=== PATIENT | female | born 1945 | race Two or more races ===

== ENCOUNTER 2023-08-27 17:24 | Inpatient (IN) | payer MEDICARE, OTHER ==
[~2023-08-27] VITALS: Ht 160 cm; Wt 49.0 kg
[2023-08-27] MEDS ORDERED: AMLODIPINE (17:50)
[2023-08-27] MEDS ORDERED: KEPPRA (17:50)
[2023-08-27 18:03] LABS: BASOPHILS # (AUTO) 0.1 K/UL (0.0-0.2); BASOPHILS % (AUTO) 1.5 % (0.0-2.0); EOSINOPHILS % (AUTO) 0.9 % (0.0-7.0); HEMATOCRIT 34.3 % (31.2-41.9); HEMOGLOBIN 11.6 g/dL (10.9-14.3); LYMPHOCYTES # (AUTO) 1.4 K/uL (0.8-4.8); LYMPHOCYTES % (AUTO) 26.9 % (20.5-51.5); MEAN CORPUSCULAR HEMOGLOBIN 31.1 uug (24.7-32.8); MEAN CORPUSCULAR HGB CONC 34 g/dL (32.3-35.6); MEAN CORPUSCULAR VOLUME 91.8 fL (75.5-95.3); MONOCYTES # (AUTO) 0.5 K/uL (0.1-1.30); NEUTROPHILS # (AUTO) 3.1 K/uL (1.8-8.9); NEUTROPHILS % (AUTO) 61.7 % (38.5-71.5); PLATELET COUNT (AUTO) 175 K/uL (179-408); RED BLOOD CELL COUNT(AUTO) 3.74 MIL/uL (3.63-4.92); WHITE BLOOD COUNT (AUTO) 5.1 K/uL (3.8-11.8)
[2023-08-27 18:09] LABS: DIFFERENTIAL COMMENT 1
[2023-08-27 18:10] LABS: CALCIUM 8.8 mg/dL (8.5-10.1); CARBON DIOXIDE 29 mmol/L (21-32); CHLORIDE 101 mmol/L (98-107); CREATININE 0.8 mg/dL (0.6-1.3); GLUCOSE 102 mg/dL (74-106); POTASSIUM 3.9 mmol/L (3.5-5.1); SODIUM SERUM 133 mmol/L (136-145); UREA NITROGEN, BLOOD 27 mg/dL (7-18)
[2023-08-27 18:11] LABS: *BILIRUBIN,URIN NEGATIVE (NEGATIVE); *BLOOD, URINE NEGATIVE (NEGATIVE); *CLARITY,URINE CLEAR (CLEAR); *COLOR,URINE YELLOW (YELLOW); *KETONES,URINE NEGATIVE (NEGATIVE); *PROTEIN,URINE 1+ (NEGATIVE); *UROBILINOGEN,URINE 0.2 E.U./dl (NORMAL); LEUKOCYTE ESTERASE ,URINE TRACE (NEGATIVE); NITRITE, URINE NEGATIVE (NEGATIVE); UGLUCOSE NEGATIVE (NEGATIVE)
[2023-08-27 18:11] LABS: AMMONIA < 10 umol/L (11-32)
[2023-08-27 18:13] LABS: ETHANOL < 3 MG/DL (0-10)
[2023-08-27 18:17] LABS: *AMPHETAMINE, URINE NEGATIVE (NEGATIVE); *BARBITURATE, URINE NEGATIVE (NEGATIVE); *BENZODIAZEPINE, URINE NEGATIVE (NEGATIVE); *CANNABINOID, URINE NEGATIVE (NEGATIVE); *COCCAINE, URINE NEGATIVE (NEGATIVE); *OPIATE, URINE NEGATIVE (NEGATIVE); *PHENCYCLIDINE SCREEN,URINE NEGATIVE (NEGATIVE); FENTANYL, URINE NEGATIVE (NEGATIVE)
[2023-08-27 18:19] LABS: RBC,URINE 0-3 /HPF (0-3)
[2023-08-27 18:20] LABS: BACTERIA,URINE FEW /HPF (NONE SEEN)
[2023-08-27 18:21] LABS: SQUAMOUS EPITHELIAL CELL,UR MODERATE /HPF (NONE SEEN)
[2023-08-27 18:25] LABS: ACETAMINOPHEN < 10.0 ug/mL (10-30); ALANINE AMINOTRANSFERASE 20 U/L (14-59); ALBUMIN 3.5 g/dL (3.4-5.0); ALKALINE PHOSPHATASE 82 U/L (50-136); ASPARTATE AMINOTRANSFERASE 20 U/L (15-37); BILIRUBIN,DIRECT 0.1 mg/dL (0.0-0.2); BILIRUBIN,TOTAL 0.4 mg/dL (0.2-1.0); TOTAL PROTEIN, SERUM 7.1 g/dL (6.4-8.2)
[2023-08-27] MEDS ORDERED: levETIRAcetam IV 1,000 MG in IV DEXTROSE 5% 100 ML IV ONE (19:15)
[2023-08-27] MEDS ORDERED: MORPHINE SULFATE 2 MG/1 ML DISP.SYRIN IV ONE ×2 (19:15→20:30)
[2023-08-27] MEDS ORDERED: SWABABLE VALVE TRANSFER SET EA MC ONE ×2 (19:16→20:44)
[2023-08-27] MEDS ORDERED: IV NORMAL SALINE 250 ML IV ONE ×2 (19:16→20:44)
[2023-08-27] MEDS ORDERED: IOHEXOL 350 100 ML INFUS..BTL ONE ×2 (19:16→20:44)
[2023-08-27] MEDS ORDERED: levETIRAcetam 500 MG/5 ML VIAL IV ONE (19:17)
[2023-08-27] MEDS ORDERED: ONDANSETRON 4 MG/2 ML VIAL IV ONE (19:30)
[2023-08-27] MEDS ORDERED: LACOSAMIDE IV ONE (19:30)
[2023-08-27] MEDS ORDERED: NORMAL SALINE IV ONE (19:30)
[2023-08-27] MEDS ORDERED: MORPHINE SULFATE 2 MG/1 ML DISP.SYRIN ONE (20:24)
[2023-08-27] MEDS ORDERED: LACOSAMIDE 50 MG TABLET ONE (22:32)
[2023-08-27] MEDS: LACOSAMIDE 50 MG TABLET ONE ×2 (22:40→23:30)
[2023-08-27] MEDS ORDERED: KETAMINE HCL 500 MG/10 ML INJ IV ONE (22:45)
[2023-08-27] MEDS ORDERED: KETAMINE HCL 200 MG/20 ML VIAL ONE (23:11)
[2023-08-27] MEDS ORDERED: LACOSAMIDE 50 MG TABLET PO ONE (23:30)
[2023-08-27] MEDS ORDERED: LORAZEPAM 2 MG/1 ML VIAL IV ONE (23:30)
[2023-08-27] MEDS ORDERED: LORAZEPAM 2 MG/1 ML VIAL ONE (23:33)
[2023-08-28] MEDS ORDERED: AMLODIPINE 5 MG TABLET PO SCH (09:00)
[2023-08-28] MEDS ORDERED: ENOXAPARIN SODIUM 40 MG/0.4 ML DISP.SYRIN SQ SCH (09:30)
[2023-08-28] MEDS ORDERED: ASPIRIN EC 81 MG TABLET.DR PO SCH (09:30)
[2023-08-28] MEDS ORDERED: hydrALAZINE HCL 20 MG/1 ML VIAL IV PRN (09:30)
[2023-08-28] MEDS ORDERED: ACETAMINOPHEN 325 MG TABLET PO PRN (09:30)
[2023-08-28] MEDS ORDERED: ONDANSETRON 4 MG/2 ML VIAL IV PRN (09:30)
[2023-08-28] MEDS ORDERED: MORPHINE SULFATE 2 MG/1 ML DISP.SYRIN IVP PRN (09:30)
[2023-08-28] MEDS ORDERED: levETIRAcetam IV 1,000 MG in IV DEXTROSE 5% 100 ML IV SCH (10:00)
[2023-08-28] MEDS ORDERED: ENOXAPARIN SODIUM 40 MG/0.4 ML DISP.SYRIN SQ ONE (11:18)
[2023-08-28] MEDS ORDERED: ASPIRIN EC 81 MG TABLET.DR PO ONE (11:18)
[2023-08-28] MEDS ORDERED: AMLODIPINE 5 MG TABLET ONE (11:19)
[2023-08-28 11:20] VITALS: BP 123/74
[2023-08-28] MEDS: IV NS 1000 ML 1,000 ML IV SCH ×2 (12:15→21:28)
[2023-08-28 18:18] VITALS: O2SAT 98
[2023-08-28] MEDS ORDERED: LACOSAMIDE IV SCH (19:30)
[2023-08-28] MEDS ORDERED: NORMAL SALINE IV SCH (19:30)
[2023-08-28] MEDS ORDERED: ATORVASTATIN 40 MG TABLET PO SCH (21:00)
[2023-08-28] MEDS ORDERED: levETIRAcetam IV 250 MG in IV DEXTROSE 5% 100 ML IV SCH (21:00)
[2023-08-28] MEDS ORDERED: ATORVASTATIN 20 MG TABLET ONE (21:43)
[2023-08-29] MEDS ORDERED: LACOSAMIDE 200 MG in IV NORMAL SALINE 100 ML IV SCH (08:00)
[2023-08-29] MEDS ORDERED: GADOTERATE MEGLUMINE 5 MMOL/10 ML VIAL IV ONE (11:51)
== END 2023-08-28 22:19 | disposition short-term general hospital (02) | DRG 100 ==
LOC: ER 17:28 → TRANSITION 08-28 02:22
PROVIDERS: ADMIT Nurse Practitioner Acute Care; ATTEND Internal Medicine
DX: G40.909 Epilepsy, unspecified, not intractable, without status epilepticus (principal); I63.9 Cerebral infarction, unspecified; C78.7 Secondary malignant neoplasm of liver and intrahepatic bile duct; C79.31 Secondary malignant neoplasm of brain; G93.49 Other encephalopathy; R64 Cachexia; G83.84 Todd's paralysis (postepileptic); Z85.118 Personal history of other malignant neoplasm of bronchus and lung; R29.703 NIHSS score 3; I10 Essential (primary) hypertension; Z79.899 Other long term (current) drug therapy; Z90.2 Acquired absence of lung [part of]
CPT/HCPCS: 36415; 70450; 70460; 70553; 71045; 83605; 84443; 84484; 85025; 85730; 87040; 93005; 93307; A9575; G0378; G0480; J1650; J1953; J2060; J2270; J2405; J7040; Q9967